=== PATIENT | female | born 2000 | race African-American/Black ===

== ENCOUNTER 2022-03-22 10:45 | Outpatient (CLI) | payer OTHER ==
[2022-03-22] MEDS ORDERED: Iopamidol 370 76% 100 ML VIAL ONE (14:45)
== END 2022-03-22 11:45 | disposition home or self-care (01) ==
LOC: CSHCT 10:45
PROVIDERS: ATTEND Family Medicine
DX: K92.1 Melena (principal); R10.84 Generalized abdominal pain; N85.2 Hypertrophy of uterus; N85.00 Endometrial hyperplasia, unspecified; N83.8 Other noninflammatory disorders of ovary, fallopian tube and broad ligament; R59.0 Localized enlarged lymph nodes
CPT/HCPCS: 74177; Q9967

== ENCOUNTER 2022-04-14 13:46 | Outpatient (CLI) | payer BC, OTHER | END 2022-04-14 13:47 | disposition home or self-care (01) | LOC: CSHULT 13:46 | PROVIDERS: ATTEND Family Medicine | DX: N83.201 Unspecified ovarian cyst, right side (principal); N83.291 Other ovarian cyst, right side | CPT/HCPCS: 76856 ==